=== PATIENT | female | born 1960 | race Caucasian/White ===

== ENCOUNTER → 2017-08-22 | Outpatient (CLI) | payer OTHER ==
[~2017-08-22] MED LIST: ARIP10 PO; ASPI81EC PO; CALPHO600 PO; CHOL10002; DULO60 PO; ESCI10; FURO20 PO; GABA300 PO; LEVSOD75 PO; MEDICAL MARIJUANA; METH10 PO; NAPR250; OXYACE5T; OXYACE5T PO; POLTRIOPSO OS; POTCHL20ER PO; RANI150; ZOLP10 PO
== END | disposition home or self-care (01) ==
LOC: LAB SHORT 15:37 → LAB EV 15:37
DX: R30.0 Dysuria (principal)
CPT/HCPCS: 87086

== ENCOUNTER → 2018-03-25 | Outpatient (CLI) | payer OTHER | END | disposition home or self-care (01) | LOC: LAB SHORT 10:01 → LAB EV 10:01 | DX: N39.0 Urinary tract infection, site not specified (principal) | CPT/HCPCS: 87086 ==

== ENCOUNTER → 2019-07-28 | Outpatient (CLI) | payer OTHER | END | disposition home or self-care (01) | LOC: LAB SHORT 08:20 → LAB EV 08:20 | DX: R30.0 Dysuria (principal) | CPT/HCPCS: 87077; 87086; 87186 ==

== ENCOUNTER 2020-10-25 22:41 | Emergency (ER) | payer OTHER ==
[~2020-10-25] VITALS: Ht 170.2 cm; Wt 99.8 kg
[2020-10-26] MEDS ORDERED: IBUP600 PO (01:50)
[2020-10-26] MEDS ORDERED: ROXICODONE5 MG PO (01:50)
== END 2020-10-26 02:40 | disposition home or self-care (01) ==
LOC: ER 22:41
DX: M54.16 Radiculopathy, lumbar region (principal); Z88.2 Allergy status to sulfonamides; Z88.6 Allergy status to analgesic agent; Z88.5 Allergy status to narcotic agent; E03.9 Hypothyroidism, unspecified
CPT/HCPCS: 72100; 73502; 96374; 99284-25; J1170; J2405

== ENCOUNTER → 2020-12-20 | Outpatient (CLI) | payer OTHER ==
[~2020-12-20] MED LIST changes: +IBUP600 PO; +OXYC5 PO; +ROXICODONE5 MG PO
[2020-12-29 13:08] LABS: COTININE 111.3 ng/mL (.); NICOTINE 200.8 ng/mL (.)
== END | disposition home or self-care (01) ==
LOC: LAB SHORT 16:37 → LAB 16:37 → LAB FUT 12-08 11:15
PROVIDERS: Orthopaedic Surgery
DX: Z87.891 Personal history of nicotine dependence (principal)
CPT/HCPCS: G0480

== ENCOUNTER 2020-12-26 08:35 | Day surgery (SDC) | payer OTHER ==
[~2020-12-26 08:35] MED LIST changes: -OXYC5 PO
--- NOTE | 2020-12-26 14:23 | NUR ---
PACU DISCHARGE: AWAKE, ALERT, CONVERSING WITH STAFF REMAINS HYPOTENSIVE IN 90'S THOUGHT PT AND ANESTHESIA STATES THIS IS BASELINE. ASYMPTOMATIC DRSG CDI ICE APPLIED TO AREA PER ORDERS XRAY DONE PT STATES BOYFRIEND HAS HER BELONGINGS REPORT TO JUVE RN
--- NOTE | 2020-12-26 19:14 | NUR ---
SHIFT SUMMARY PT A&OX4, VSS/RA, POD R AVILA, AQUACEL CDI. PAIN MANAGED WITH TYLENOL TORADOL AND 5 MG OXY. PAR[place] PO. WORKED WITH PHYSICAL THERAPY TODAY; UP TO CHAIR. REPORT PROVIDED TO SHELL SCHULER/LISE SCHUELR.
[2020-12-27 04:43] LABS: BASOPHILS ABSOLUTE AUTO 0.01 K/mm3 (0.00-0.23); BASOPHILS PERCENT AUTO 0 % (0-2); EOSINOPHILS PERCENT AUTO 0 % (0-6); Hematocrit 31.9 % (33.0-51.0); Hemoglobin 10.6 g/dL (11.5-16.0); IMMATURE GRAN ABSOLUTE AUTO 0.03 K/mm3 (0.00-0.10); IMMATURE GRAN PERCENT AUTO 0 % (0-1); LYMPHOCYTES PERCENT AUTO 10 % (21-46); MONOCYTES ABSOLUTE AUTO 1.09 K/mm3 (0.16-1.47); MONOCYTES PERCENT AUTO 10 % (4-13); Mean Corpuscular HGB 31.6 pg (26.0-34.0); Mean Corpuscular HGB Conc 33.2 g/dL (31.5-36.5); Mean Corpuscular Volume 95 fL (80-100); Mean Platelet Volume 9.3 fL (9.1-12.4); NEUTROPHILS ABSOLUTE AUTO 8.81 K/mm3 (1.96-9.15); NEUTROPHILS PERCENT AUTO 80 % (41-73); Platelet Count 196 K/mm3 (150-400); RDW Coefficient Variation 13.1 % (11.7-14.2); RDW Standard Deviation 45.1 fL (35.1-46.3); Red Blood Cell Count 3.35 M/mm3 (3.80-5.20); White Blood Cell Count 11.04 K/mm3 (4.00-11.30)
--- NOTE | 2020-12-27 04:59 | NUR ---
SHIFT SUMMARY PT A&OX4 AND IN PLEASENT MOOD T/O SHIFT. CALL LIGHT W/IN REACH. PT UP TO RESTROOM VIA FWW T/O SHIFT. PT TOLERATING ORAL INTAKE AND VOIDING WELL. DRESSING IS CDI. MEDICATED PER EMAR FOR INCREASING PAIN T/O SHIFT.
[2020-12-27 05:04] LABS: Anion Gap 4 mmol/L (6-16); Blood Urea Nitrogen 17 mg/dL (8-24); CO2, Blood 26 mmol/L (21-32); Chloride, Blood 110 mmol/L (98-108); Glomerular Filtration Rate >60 (60-); Glucose, Blood 107 mg/dL (70-99); Magnesium, Blood 2.6 mg/dL (1.6-2.4); Potassium, Blood 4.5 mmol/L (3.5-5.5); Sodium, Blood 140 mmol/L (136-145)
[2020-12-27] MEDS ORDERED: OXYC5 PO (09:22)
--- NOTE | 2020-12-27 10:03 | NUR ---
SHIFT SUMMARY PT A&OX4, VSS/RA, PAR[place] PO, VOIDING WELL, AMB W/FWW&GB, PAIN MANAGED W/5MGOXY. PT LEFT FLOOR VIA WC WITH [employer], WITH ALL PERSONAL POSSESSIONS INCLUDING JAMEL SANDERS, DC PACKET, 1 NARC SCRIPT, 2 AQUACEL, TO GO HOME WITH SIGNIFICANT OTHER BILL. DC INSTRUCTIONS PROVIDED TO BOTH PT AND SO, THEY REPORTED UNDERSTANDING THOSE INSTRUCTIONS. IV DC'D.
--- NOTE | 2020-12-27 12:37 | NUR ---
12/27/20 1237 Gisel Mcdonough VERIFICTIONS: EDIT CHART.
== END 2020-12-27 09:42 | disposition home or self-care (01) ==
LOC: ORSCMMR 08:35 → SURS 14:08 → ORSCMMR 12-27 09:42
PROVIDERS: Orthopaedic Surgery
PROC: 0SR90JA Replacement of Right Hip Joint with Synthetic Substitute, Uncemented, Open Approach (ICD-10-PCS; principal; 2020-12-26 10:45)
DX: M87.051 Idiopathic aseptic necrosis of right femur (principal); Z87.891 Personal history of nicotine dependence; E03.9 Hypothyroidism, unspecified; K21.9 Gastro-esophageal reflux disease without esophagitis; Z79.899 Other long term (current) drug therapy
CPT/HCPCS: 36415; 72170; 80048; 83735; 85025; 97110; 97116; 97162; 97530; A9270; C1776; J0171; J0690; J0735; J1100; J1170; J1885; J2250; J2370; J2405; J2704; J2795; J3010; J7120

== ENCOUNTER 2021-10-09 09:24 | Day surgery (SDC) | payer OTHER ==
[~2021-10-09] VITALS: Ht 170.2 cm; Wt 98.7 kg
[~2021-10-09 09:24] MED LIST changes: +OXYC5 PO
[2021-10-09] MEDS ORDERED: TRAZ50 (10:03)
== END 2021-10-09 11:59 | disposition home or self-care (01) ==
LOC: ORSCSDS 09:24
PROVIDERS: Student in an Organized Health Care Education/Training Program
PROC: 0DB48ZX Excision of Esophagogastric Junction, Via Natural or Artificial Opening Endoscopic, Diagnostic (ICD-10-PCS; principal; 2021-10-09 11:00)
PROC: 0DBH8ZX Excision of Cecum, Via Natural or Artificial Opening Endoscopic, Diagnostic (ICD-10-PCS; principal; 2021-10-09 11:00)
PROC: 0DBC8ZX Excision of Ileocecal Valve, Via Natural or Artificial Opening Endoscopic, Diagnostic (ICD-10-PCS; principal; 2021-10-09 11:00)
PROC: 0DB78ZX Excision of Stomach, Pylorus, Via Natural or Artificial Opening Endoscopic, Diagnostic (ICD-10-PCS; principal; 2021-10-09 11:00)
PROC: 0DBM8ZX Excision of Descending Colon, Via Natural or Artificial Opening Endoscopic, Diagnostic (ICD-10-PCS; principal; 2021-10-09 11:00)
PROC: 0DBL8ZX Excision of Transverse Colon, Via Natural or Artificial Opening Endoscopic, Diagnostic (ICD-10-PCS; principal; 2021-10-09 11:00)
DX: Z12.11 Encounter for screening for malignant neoplasm of colon (principal); Z86.010 Personal history of colon polyps; R13.10 Dysphagia, unspecified; K29.70 Gastritis, unspecified, without bleeding; K57.30 Diverticulosis of large intestine without perforation or abscess without bleeding; K22.70 Barrett's esophagus without dysplasia; D12.3 Benign neoplasm of transverse colon; D12.0 Benign neoplasm of cecum; D12.4 Benign neoplasm of descending colon; K44.9 Diaphragmatic hernia without obstruction or gangrene; F17.210 Nicotine dependence, cigarettes, uncomplicated; E03.9 Hypothyroidism, unspecified; Z79.899 Other long term (current) drug therapy; E66.9 Obesity, unspecified; Z68.37 Body mass index [BMI] 37.0-37.9, adult; J44.9 Chronic obstructive pulmonary disease, unspecified; N18.9 Chronic kidney disease, unspecified
CPT/HCPCS: 88305; 88342; J0461; J2704; J7120

== ENCOUNTER 2022-07-02 11:57 | Day surgery (SDC) | payer OTHER ==
[~2022-07-02] VITALS: Ht 170.2 cm; Wt 96.2 kg
[~2022-07-02 11:57] MED LIST changes: +TRAZ50
[2022-07-02] MEDS ORDERED: ASPIR 8181 M1 (12:20)
[2022-07-02 14:21] VITALS: BP 88/58
== END 2022-07-02 14:10 | disposition home or self-care (01) ==
LOC: ORSCSDS 11:57
PROVIDERS: Student in an Organized Health Care Education/Training Program
PROC: 0DBH8ZX Excision of Cecum, Via Natural or Artificial Opening Endoscopic, Diagnostic (ICD-10-PCS; principal; 2022-07-02 13:15)
PROC: 0DBL8ZX Excision of Transverse Colon, Via Natural or Artificial Opening Endoscopic, Diagnostic (ICD-10-PCS; principal; 2022-07-02 13:15)
DX: Z86.010 Personal history of colon polyps (principal); D12.3 Benign neoplasm of transverse colon; D12.0 Benign neoplasm of cecum; K57.30 Diverticulosis of large intestine without perforation or abscess without bleeding; J44.9 Chronic obstructive pulmonary disease, unspecified; F17.210 Nicotine dependence, cigarettes, uncomplicated; E03.9 Hypothyroidism, unspecified; Z79.899 Other long term (current) drug therapy; M87.9 Osteonecrosis, unspecified
CPT/HCPCS: 88305; J2704; J7120

== ENCOUNTER 2024-06-30 08:39 | Day surgery (SDC) | payer OTHER ==
[2024-06-30] VITALS (17 sets, daily range): BP systolic 95–142; BP diastolic 59–100
[~2024-06-30] VITALS: Ht 167 cm; Wt 116.6 kg
[~2024-06-30 08:39] MED LIST changes: +ALBU90OI INH; +ASPIR 8181 M1; +Acetaminophen 500 MG Tab PO SCH; +Bupivacaine 0.5% Inj 10 ML Vial ONE; +CeFAZolin Sodium 2,000 MG in NS 100 ML IV SCH; +Chlorhexidine Mouth Care 15 ML UDC MT SCH; +FLUT1DIS5 INH; +IBUP400 PO; +LEVSOD112 PO; -LEVSOD75 PO; +Lactated Ringer's 1,000 ML IV SCH; +MULTI-VITAMIN1 EAC2 PO; +NIGHT TIME PAI1 EAC1 PO; +OMEP20ER PO; +OxyCODONE HCL 10 MG TABCR PO SCH; +POTA10T PO; -POTCHL20ER PO; +Phentermine HCl15 MG PO; +Ropivacaine 0.5% HCl/Pf 123.125 MG,EPINEPHrine HCL 0.25 MG,Ketorolac Tromethamine 15 MG... INFIL SCH; +TRAZ100 PO; -TRAZ50; +Tranexamic Acid 100 ML IV SCH; +propofoL 50 ML IV ONE
[2024-06-30] MEDS ORDERED: Metoclopramide HCl 5MG / ML 2ML Vial IV PRN ×2 (09:25→09:50)
[2024-06-30] MEDS ORDERED: Ondansetron HCl 2 MG / ML 2ML Vial IV PRN ×2 (09:25→09:45)
[2024-06-30] MEDS ORDERED: HYDROmorphone HCl/Pf 1MG SYR IV PRN ×2 (09:25→09:50)
[2024-06-30] MEDS ORDERED: FentaNYL Citrate 50 MCG/ML 2 ML Injection IV PRN ×3 (09:30)
[2024-06-30] MEDS ORDERED: Albuterol 2.5 MG/3 ML VIAL INH PRN ×2 (09:30→09:35)
[2024-06-30] MEDS ORDERED: Scopolamine Hydrobromide Patch TOP SCH (09:30)
[2024-06-30] MEDS ORDERED: Lidocaine HCl 1% 5 ML SYR INJ ONE (09:35)
[2024-06-30] MEDS ORDERED: Gabapentin 300 MG Cap PO PRN (09:40)
[2024-06-30] MEDS ORDERED: Ipratropium Bromide INH 0.02% 0.5 mg/2.5ML Vial INH PRN (09:40)
[2024-06-30] MEDS ORDERED: OxyCODONE HCL 5 MG TAB PO PRN ×2 (09:45)
[2024-06-30] MEDS ORDERED: Bisacodyl 10 MG Supp PR PRN (09:45)
[2024-06-30] MEDS ORDERED: Promethazine HCl 25 MG Tab PO PRN (09:50)
[2024-06-30] MEDS ORDERED: Magnesium Hydroxide Conc 10 ML UDC PO PRN (09:50)
[2024-06-30] MEDS ORDERED: DiphenhydrAMINE HCL 25 MG Cap PO PRN (09:50)
--- NOTE | 2024-06-30 10:21 | NUR ---
History, Chart, Medications and Allergies reviewed before start of procedure. Patient up to Ambulate independently. Gait steady. Pre-Op teaching done. Pt verbalizes understanding. Patient confirms NPO status and agrees with scheduled surgery. Patient reports completing Chlorhexadine shower X2 prior to admission to hospital. Surgical site prepped with 2% Chlorhexidine cloth wipe. Lungs clear T/O to Auscultation. Patient States Post-Procedure ride home has been arranged. Patient actively crying upon entrance to [facility], making labored attempts to catch breath. Pt sts "it's family stuff & I don't want to talk about it." Patient sts she does feel safe at home, and wants to proceed today.
[2024-06-30] MEDS ORDERED: FentaNYL Citrate 50 MCG/ML 2 ML Injection ONE ×2 (11:41→14:21)
[2024-06-30] MEDS ORDERED: Ondansetron HCl 2 MG / ML 2ML Vial ONE (11:46)
[2024-06-30] MEDS ORDERED: Ketorolac Tromethamine 30mg Vial ONE (11:46)
[2024-06-30] MEDS ORDERED: Dexamethasone Sod Phos 10 MG/ML 1ML VIAL ONE (11:46)
[2024-06-30] MEDS ORDERED: Metoclopramide HCl 5MG / ML 2ML Vial ONE (11:46)
[2024-06-30] MEDS ORDERED: Mometasone/Formoterol MDI 200/5 mcg 13 GM INH SCH (12:00)
[2024-06-30] MEDS ORDERED: Ipratropium/Albuterol SulF 2.5-0.5MG/3 ML Amp ONE ×2 (12:08→14:21)
[2024-06-30] MEDS ORDERED: propofoL 20 ML IV ONE (12:10)
[2024-06-30] MEDS ORDERED: ePHEDrine Sulfate 50 MG/ML 1ML Injection ONE (12:23)
[2024-06-30] MEDS ORDERED: Lactated Ringer's 1,000 ML IV SCH (12:30)
[2024-06-30] MEDS ORDERED: Vasopressin 20 UNITS/ML 1ML Vial ONE (12:44)
[2024-06-30] MEDS ORDERED: Glycopyrrolate 0.2 MG/ML 5ML VIAL ONE (13:19)
[2024-06-30] MEDS ORDERED: propofoL 40 ML IV ONE (13:30)
--- NOTE | 2024-06-30 15:21 | NUR ---
PT ARRIVED TO ROOM 223 FROM PACU IN BED. PT A&OX4. VSS. IRENE WRAP TO LLE CDI, POLAR PACK IN PLACE. PT ABLE TO WIGGLE TOES. ORIENTED TO USE OF CALL LIGHT/PLACED CALL LIGHT AND PHONE IN PATIENT'S REACH. PROVIDED ICE WATER AND SNACKS.
[2024-06-30] MEDS ORDERED: Acetaminophen 500 MG Tab PO SCH (16:00)
[2024-06-30] MEDS ORDERED: Ketorolac Tromethamine 15mg Vial IV SCH (18:00)
[2024-06-30] MEDS ORDERED: ASPI81CH PO (18:12)
--- NOTE | 2024-06-30 19:03 | NUR ---
PT STABLE POST OP DAY 0 FOR RIGHT TKA. DRESSING REMAINS CDI. PT WORKED WELL WITH STAFF TO MOBILIZE TO CHAIR. PT RATES PAIN HIGH WITH MOVEMENT. PAIN CONTROLLED WITH SCHEDULED MEDS AND PRN ROXICODONE. PT TOLERATING DIET WELL. VOIDED THIS EVENING. TXA COMPLETED. SL IV. PT STATES SHE DOES NOT WANT TO GO HOME TONIGHT, SHE FEELS RUSHED AND WOULD LIKE TO WORK WITH THERAPY. WILL NOTIFY .
[2024-06-30] MEDS ORDERED: CeFAZolin Sodium 2,000 MG in NS 100 ML IV SCH (20:00)
[2024-06-30] MEDS ORDERED: TraZODone HCl 100 MG Tab PO SCH (21:00)
[2024-06-30] MEDS ORDERED: Docusate Sodium 100 MG Cap PO SCH (21:00)
--- NOTE | 2024-06-30 21:20 | NUR ---
DISCHARGE PT AAOX4 AND PLEASANT. HAS AMBULATED MULTIPLE TIMES TO THE BATHROOM AND HAS DONE WELL. SCHEDULED DOSE OF IV ANCEF GIVEN AND THEN IV REMOVED. GONE OVER DISCHARGE INSTRUCTIONS WITH PT. MEDICATED FOR PAIN PRIOR TO DC. PT'S FRIEND CAME IN TO TAKE PT HOME. PT'S PERSONAL BELONGINGS GATHERED AND PT TAKEN TO HER CAR VIA WHEELCHAIR. TRANSFERRED FROM WHEELCHAIR TO CAR WITH NO ISSUE.
[2024-07-01] MEDS ORDERED: Omeprazole 20 MG CapCR PO SCH (06:00)
[2024-07-01] MEDS ORDERED: Levothyroxine Sodium 0.112 MG Tab PO SCH (06:00)
[2024-07-01] MEDS ORDERED: Aspirin 81 MG Chew PO SCH (09:00)
[2024-07-01] MEDS ORDERED: Furosemide 20 MG Tab PO SCH (09:00)
[2024-07-01] MEDS ORDERED: Potassium Chloride 10 Meq Tablet SA PO SCH (09:00)
[2024-07-01] MEDS ORDERED: Multivitamins 1 Tab PO SCH (09:00)
== END 2024-06-30 21:07 | disposition home or self-care (01) ==
LOC: ORSCMMR 08:39 → ORD 09:15 → ORSCMMR 10:00 → ORD 10:00 → SURS 15:02 → ORSCMMR 21:07
PROVIDERS: Orthopaedic Surgery
PROC: 0SRD0JA Replacement of Left Knee Joint with Synthetic Substitute, Uncemented, Open Approach (ICD-10-PCS; principal; 2024-06-30 11:30)
PROC: 8E0Y0CZ Robotic Assisted Procedure of Lower Extremity, Open Approach (ICD-10-PCS; principal; 2024-06-30 11:30)
DX: M17.12 Unilateral primary osteoarthritis, left knee (principal); I10 Essential (primary) hypertension; J44.9 Chronic obstructive pulmonary disease, unspecified; G47.33 Obstructive sleep apnea (adult) (pediatric); Z87.891 Personal history of nicotine dependence; E03.9 Hypothyroidism, unspecified; E66.01 Morbid (severe) obesity due to excess calories; Z68.41 Body mass index [BMI] 40.0-44.9, adult
CPT/HCPCS: 73560-LT; A9270; C1713; C1776; J0171; J0690; J0735; J1100; J1885; J2405; J2704; J2765; J2795; J3010; J7120